=== PATIENT | male | born 1940 | race Caucasian/White ===

== ENCOUNTER 2022-03-27 22:05 | Inpatient (IN) | payer OTHER ==
[~2022-03-27] VITALS: Ht 190.5 cm; Wt 84.7 kg
[~2022-03-27 22:05] MED LIST: MULVITA
[2022-03-27 22:31] LABS: BASOPHILS ABSOLUTE AUTO 0.01 K/mm3 (0.00-0.23); BASOPHILS PERCENT AUTO 0 % (0-2); EOSINOPHILS PERCENT AUTO 0 % (0-6); Hematocrit 39.3 % (37.0-53.0); Hemoglobin 13.1 g/dL (13.5-17.5); IMMATURE GRAN ABSOLUTE AUTO 0.03 K/mm3 (0.00-0.10); IMMATURE GRAN PERCENT AUTO 0 % (0-1); LYMPHOCYTES ABSOLUTE AUTO 1.33 K/mm3 (0.84-5.20); LYMPHOCYTES PERCENT AUTO 17 % (21-46); MONOCYTES ABSOLUTE AUTO 0.69 K/mm3 (0.16-1.47); MONOCYTES PERCENT AUTO 9 % (4-13); Mean Corpuscular HGB 32.8 pg (26.0-34.0); Mean Corpuscular HGB Conc 33.3 g/dL (31.5-36.5); Mean Corpuscular Volume 98 fL (80-100); Mean Platelet Volume 11.2 fL (9.1-12.4); NEUTROPHILS PERCENT AUTO 74 % (41-73); Platelet Count 215 K/mm3 (150-400); RDW Coefficient Variation 13.4 % (11.7-14.2); White Blood Cell Count 8.06 K/mm3 (4.00-11.30)
[2022-03-27 22:32] LABS: pH Blood Arterial 7.42 (7.35-7.45)
[2022-03-27 22:33] LABS: PO2 Arterial 61.1 mmHg (80-100)
[2022-03-27 23:03] LABS: Albumin, Blood 3.5 g/dL (3.4-5.0); Bilirubin, Total 0.8 mg/dL (0.1-1.0); Bun/Creatinine Ratio 21.2 (12.0-20.0); Calcium, Blood 9.3 mg/dL (8.5-10.1); Creatinine, Blood 1.32 mg/dL (0.60-1.20); Globulin, Blood 3.4 g/dL (2.2-4.0); Potassium, Blood 4.3 mmol/L (3.5-5.5); Total Protein, Blood 6.9 g/dL (6.4-8.2)
[2022-03-27 23:16] LABS: Influenza A, PCR NEGATIVE (NEGATIVE); Influenza B, PCR NEGATIVE (NEGATIVE); Resp Syncytial Virus, PCR NEGATIVE (NEGATIVE); SARS-Cov-2 (COVID-19) PCR, MMC NEGATIVE (NEGATIVE)
[2022-03-28 00:10] LABS: Anti-Xa UFH, PHA Monitoring <0.10 IU/mL; International Normalized Ratio 1.16; Prothrombin Time Results 12.1 Sec (9.7-11.5)
[2022-03-28 01:49] LABS: CHOL/HDL RATIO 2.5; Cholesterol 119 mg/dL (50-200); HDL Cholesterol 47 mg/dL (>39); LDL/HDL RATIO 1.1; Low Density Lipoprotein Chol 51 mg/dL (0-110); Triglycerides 103 mg/dL (30-160); Very Low Density Lipoprot Chol 20 mg/dL (6-32)
[2022-03-28] MEDS ORDERED: OMEP20ER PO (02:25)
[2022-03-28] MEDS ORDERED: Lisinopril2.5 MG PO (02:27)
[2022-03-28] MEDS ORDERED: SPIR25 PO (02:27)
[2022-03-28] MEDS ORDERED: ASPI81CH PO (02:28)
[2022-03-28] MEDS ORDERED: ATOR40TA PO (02:28)
[2022-03-28 03:07] LABS: PCO2 Arterial 34.2 mmHg (35-45); PO2 Arterial 49.6 mmHg (80-100); pH Blood Arterial 7.37 (7.35-7.45)
[2022-03-28 04:03] LABS: BASOPHILS ABSOLUTE AUTO 0.01 K/mm3 (0.00-0.23); BASOPHILS PERCENT AUTO 0 % (0-2); EOSINOPHILS PERCENT AUTO 0 % (0-6); Hematocrit 38.6 % (37.0-53.0); Hemoglobin 12.7 g/dL (13.5-17.5); IMMATURE GRAN ABSOLUTE AUTO 0.02 K/mm3 (0.00-0.10); IMMATURE GRAN PERCENT AUTO 0 % (0-1); LYMPHOCYTES PERCENT AUTO 14 % (21-46); MONOCYTES ABSOLUTE AUTO 0.72 K/mm3 (0.16-1.47); MONOCYTES PERCENT AUTO 8 % (4-13); Mean Corpuscular HGB 32.7 pg (26.0-34.0); Mean Corpuscular HGB Conc 32.9 g/dL (31.5-36.5); Mean Corpuscular Volume 100 fL (80-100); Mean Platelet Volume 11.4 fL (9.1-12.4); NEUTROPHILS ABSOLUTE AUTO 7.13 K/mm3 (1.96-9.15); NEUTROPHILS PERCENT AUTO 78 % (41-73); Platelet Count 219 K/mm3 (150-400); RDW Coefficient Variation 13.5 % (11.7-14.2); RDW Standard Deviation 49.3 fL (35.1-46.3); Red Blood Cell Count 3.88 M/mm3 (4.30-5.90); White Blood Cell Count 9.18 K/mm3 (4.00-11.30)
[2022-03-28 04:17] LABS: Bun/Creatinine Ratio 20.4 (12.0-20.0); Calcium, Blood 9.3 mg/dL (8.5-10.1); Creatinine, Blood 1.47 mg/dL (0.60-1.20); Magnesium, Blood 1.4 mg/dL (1.6-2.4); Potassium, Blood 4.3 mmol/L (3.5-5.5)
--- NOTE | 2022-03-28 10:34 | NUR ---
Responded to code called in ICU. Dr Fernandez on phone with rhonda, giving update. Code and CPR in progress with Dr Kuo and ICU team. Pt cont with PEA and no ROSC t/o. Dr Fernandez came to room to inform that rhonda has asked for CPR to be stopped. Rhonda on her way in with her . Rhonda, Oksana has two day old baby and left hospital yesterday for home. RN to page me when rhonda arrives. Staff doing TOD aftercare currently. Will return to ICU when called.
--- NOTE | 2022-03-28 10:42 | NUR ---
ASSUMED CARE OF PT AT 0700 THIS AM. PT ON CPAP WITH 15L BLEED IN AND SPO2 88%. SPOKE WITH RT AND ASKED ABOUT SWITCHING PT TO BIPAP, WHICH THERE IS AN ORDER FOR, AND SHE CAME OVER AND SWITCHED PT TO BIPAP. PT DID BETTER ON BIPAP WITH FIO2 60% AND WAS ABLE TO TITRATE DOWN TO 55% BECAUSE SPO2 WAS 98%. PT WAS COUGHING UP THICK YELLOW SPUTUM AND WOULD TAKE THE MASK OFF TO SPIT IT INTO A TISSUE. AT ABOUT 0950 RT SAID SHE FOUND PT WITH HIS BIPAP OFF AND PT PLACED ON HIGH FLOW NC AT 15L. PT WAS COUGHING UP MORE SPUTUM THEN. AT THAT POINT THIS RN GAVE PT A SIP OF WATER, WHICH HE TOLERATED SO ATTEMPTED TO GIVE HIM THE PO BUMEX DR. CADE ORDERED. PT APPEARED TO CHOKE ON THE FIRST PILL, BUT WAS ABLE TO COUGH IT UP. PT'S SPO2 STARTED TO DROP SO PLACED PT BACK ON BIPAP, BUT WITHIN 5 MINUTES HE STARTED GAGGING. TOOK PT OFF BIPAP AND PLACED HIM ON NONREBREATHER. GOT PT IV ZOFRAN. VERÓNICA NEVILLE RN TO THE BEDSIDE BECAUSE PT'S BP STARTED LOWERING AGAIN. LEVOPHED INCREASED TO 10 MCG/MIN. CALLED DR. CADE TO GET BUMEX SWITCHED TO IV WHILE VERÓNICA NEVILLE RN STAYED AT THE BEDSIDE WITH PT. ALSO ADVISED DR. CADE THAT PT IS STARTING TO GO IN AND OUT OF AFIB, RATE IN THE 60S. WHILE PLACING NEW ORDERS FROM DR. RAYO NEVILLE, RN CALLED THIS NURSE TO BEDSIDE PT'S HR DROPPED TO THE 40S. DR. RM ALSO CAME TO THE BEDSIDE AT THAT TIME. LEVOPHED TURNED UP, BIPAP HELD TO PT'S FACE, BUT PT AGONAL BREATHING SO SWITCHED TO BAGGING PT. PT STILL HAD A PULSE WITH RATE IN THE 40S AT THAT TIME. NURSING LEAD FRONT DESK AGENT NOTIFIED AND ASKED TO CALL PT'S DAUGHTER TO UPDATE HER ON PT CONDITION. AFTER ABOUT 5 MINUTES OF BAGGING PT HE WENT INTO [facility]. SEE CODE SHEET FOR EVENTS AND MEDICATIONS. AFTER 8 MINUTES OF CPR NURSING LEAD FRONT DESK AGENT NOTIFIED US THAT PT'S DAUGHTER GAVE ORDERS TO STOP CPR AND ALLOW PT TO PASS. PT PRONOUNCED AT 1026.
--- NOTE | 2022-03-28 11:50 | NUR ---
Return visit when rhonda/granddau arrived. She is appropriately tearful and grieving. Pt's RN updated her on events of morning. Oksana spent private time at bedside. She states her granddad has been her dad and officially adopted her. She says he's been preparing all his final arrangements since his , her grandma . She knows where his paperwork and final arrangements information is at his home and is going to call us later today with the mortuary info. Rhonda was given his wallet and keys by RN. SHe asked if we could send his clothing/other belongings with him to the home. fagot heater included in this conversation. ICU will call Oksana if mortuary of choice does not want to accept belongings bag. I escorted Oksana out of ICU when she was ready to leave. [facility] nurse was waiting for her and escorted her back to [facility] where her was getting bilirubin check.
--- NOTE | 2022-03-28 12:02 | NUR ---
PT'S GRANDDAUGHTER CAME BY AND SAID GOODBYES TO PT. DISCUSSED WITH HER THE EVENT LEADING UP TO PT'S AND THE CARE/TREATMENTS GIVEN TO HIM TO TRY AND HELP. COMFORT PROVIDED BY THIS RN AND PALLIATIVE CARE RN. PT'S GRANDDAUGHTER TOOK PT'S SOOET, MILAGRO AND KEYS, ALSO WITNESSED BY YANG MEJIA RN. GRANDDAUGHTER TO CALL WITH HOME PT HAD A FOLDER AT HOME WITH HIS END OF LIFE PLANS AND SHE WANTS TO CHECK THAT FIRST.
--- NOTE | 2022-03-28 14:20 | NUR ---
PT'S BELONGINGS SENT TO [facility] [employer] [facility], FOR PT'S GRANDDAUGHTER TO EDUCATIONAL PROGRAM ASSISTANT TOMORROW WHILE AT HER BABY'S APPT
== END 2022-03-28 16:18 | DRG 871 ==
LOC: ER 22:05 → ICUW 03-28 02:15 → ICUE 03-28 02:15
PROVIDERS: Emergency Medicine; ADMIT Family Medicine
PROC: 3E033XZ Introduction of Vasopressor into Peripheral Vein, Percutaneous Approach (ICD-10-PCS; principal; 2022-03-28)
PROC: 5A12012 Performance of Cardiac Output, Single, Manual (ICD-10-PCS; 2022-03-28)
PROC: 5A09357 Assistance with Respiratory Ventilation, Less than 24 Consecutive Hours, Continuous Positive Airway Pressure (ICD-10-PCS; 2022-03-28)
DX: A41.9 Sepsis, unspecified organism (principal); I21.4 Non-ST elevation (NSTEMI) myocardial infarction; J18.9 Pneumonia, unspecified organism; J96.01 Acute respiratory failure with hypoxia; I50.23 Acute on chronic systolic (congestive) heart failure; R65.21 Severe sepsis with septic shock; N17.9 Acute kidney failure, unspecified; E87.2 Acidosis; J44.0 Chronic obstructive pulmonary disease with (acute) lower respiratory infection; Z51.5 Encounter for palliative care; Z66 Do not resuscitate; Z20.822 Contact with and (suspected) exposure to COVID-19; I73.9 Peripheral vascular disease, unspecified; F17.200 Nicotine dependence, unspecified, uncomplicated; I11.0 Hypertensive heart disease with heart failure; I25.10 Atherosclerotic heart disease of native coronary artery without angina pectoris; E78.5 Hyperlipidemia, unspecified; E83.42 Hypomagnesemia; I25.5 Ischemic cardiomyopathy; R57.0 Cardiogenic shock; D64.9 Anemia, unspecified; I25.2 Old myocardial infarction; Z71.6 Tobacco abuse counseling; Z79.899 Other long term (current) drug therapy
CPT/HCPCS: 0241U; 36415; 36600; 71045; 80048; 80053; 80061; 82803; 82947; 83605; 83735; 83880; 84145; 84484; 85025; 85520; 85610; 85730; 87040; 93005; 93010; 94644; 94660; 94664; 96365; 96366; 96367; 96368; 96375; 99285-25; A9270; J0456; J0461; J0696; J1644; J2405; J3475; J7030; J7050; J7060